=== PATIENT | male | born 1960 | race Caucasian/White ===

== ENCOUNTER 2021-10-14 10:50 | Emergency (ER) | payer MEDICARE ==
[2021-10-14 14:09] LABS: HEMOGLOBIN 11.4 gm/dl (14.0-17.5)
[2021-10-14 14:18] LABS: WHITE BLOOD COUNT 35.7 K/UL (4.5-11.0)
[2021-10-14 14:28] LABS: BUN/CREATININE RATIO 19 (0-10)
== END 2021-10-14 17:17 | disposition home or self-care (01) ==
LOC: ER1 10:50
PROVIDERS: Emergency Medicine
DX: D72.829 Elevated white blood cell count, unspecified (principal); J44.9 Chronic obstructive pulmonary disease, unspecified; I25.2 Old myocardial infarction; F17.210 Nicotine dependence, cigarettes, uncomplicated; Z20.822 Contact with and (suspected) exposure to COVID-19
CPT/HCPCS: 36415; 71045; 71260; 80048; 80053; 80061; 81001; 82043; 82570; 83036; 83605; 83704; 84443; 84550; 85007; 85027; 87040; 96374; 99284; J0696; Q9967; U0002

== ENCOUNTER → 2021-10-14 | Outpatient (CLI) | payer MEDICARE ==
[~2021-10-14] MED LIST: AMARYL 2MG TABLE2 MG PO; ASPIR 8181 MG PO; ASPIR-LOW81 MG PO; ASPIRIN EC81 MG PO; BUMETANIDE2 MG PO; CALCIUM 600 +1 EAC3 PO; CALCIUM 600 +1 EAC7 PO; CARBAMAZEPINE200 MG PO; CELECOXIB200 MG PO; CRESTOR40 MG PO; CYMBALTA 30 MG30 MG PO; EFFER-K 20 MEQ20 MEQ PO; FEOSOL325 MG PO; FLOMAX 0.4 MG0.4 MG PO; FLONASE 0.05% N16 GM; FOSAMAX70 MG PO; HYDROXYZINE HCL25 MG PO; IMDUR ER TAB 3030 MG PO; KEPPRA 500 MG500 MG PO; LOPRESSOR 25 MG25 MG PO; NAPROSYN500 MG PO; NASONEX17 GM; NEURONTIN 400400 MG PO; NITROGLYCERIN0.4 MG SL; OMEPRAZOLE20 MG PO; OXYCODONE HCL5 MG PO; PERCOCET 5-3251 EACH PO; PROAIR HFA8.5 GM INH; QUETIAPINE FUM300 MG PO; QUETIAPINE FUMA25 MG PO; REMERON45 MG PO; RESTORIL30 MG PO; ROBAXIN 750 MG750 MG PO; SEROQUEL TAB 2525 MG PO; SYMBICORT 160-1 INHA INH; TIZANIDINE HCL4 M1 PO; TIZANIDINE HCL4 MG PO; TOPROL XL 25 MG25 MG PO; VISTARIL25 MG PO; [UNRECOGNIZED DRUG - OTHER] PO
[2021-10-14 08:12] LABS: HEMOGLOBIN 11.6 gm/dl (14.0-17.5); RED BLOOD COUNT 3.73 M/UL (4.20-5.50)
[2021-10-14 09:55] LABS: WHITE BLOOD COUNT 36.1 K/UL (4.5-11.0)
[2021-10-15 07:10] LABS: A/G RATIO 1.8 (1.2-2.2); ALKALINE PHOSPHATASE, S 80 IU/L (44-121); ALT (SGPT) 18 IU/L (0-44); AST (SGOT) 17 IU/L (0-40); BILIRUBIN, TOTAL <0.2 mg/dL (0.0-1.2); BUN 13 mg/dL (8-27); BUN/CREATININE RATIO 18 (10-24); CALCIUM, SERUM 9.3 mg/dL (8.6-10.2); CARBON DIOXIDE, TOTAL 21 mmol/L (20-29); CHLORIDE, SERUM 97 mmol/L (96-106); CREATININE, SERUM 0.74 mg/dL (0.76-1.27); EGFR IF AFRICN AM 113 (>59); EGFR IF NONAFRICN AM 98 (>59); ESTIM. AVG GLU (EAG) 128 mg/dL (.); GLOBULIN, TOTAL 2.4 g/dL (1.5-4.5); GLUCOSE, SERUM 112 mg/dL (65-99); HEMOGLOBIN A1C 6.1 % (4.8-5.6); POTASSIUM, SERUM 4.5 mmol/L (3.5-5.2); PROTEIN, TOTAL, SERUM 6.7 g/dL (6.0-8.5); SODIUM, SERUM 133 mmol/L (134-144)
[2021-10-15 10:10] LABS: CREATININE, URINE 91.6 mg/dL (Not Estab.)
[2021-10-16 19:09] LABS: CHOLESTEROL, TOTAL 120 mg/dL (100-199); HDL SIZE 9.7 nm (>=9.2); HDL-C 47 mg/dL (>39); HDL-P (TOTAL) 28.4 umol/L (>=30.5); LARGE HDL-P 6.3 umol/L (>=4.8); LARGE VLDL-P 1.7 nmol/L (<=2.7); LDL SIZE 20.5 nm (>20.5); LDL SIZE 20.5 nm (>=20.8); LDL-C 57 mg/dL (0-99); LDL-P 687 nmol/L (<1000); LP-IR SCORE 32 (<=45); SMALL LDL-P 281 nmol/L (<=527); TRIGLYCERIDES 78 mg/dL (0-149); VLDL SIZE 43.5 nm (<=46.6)
== END ==
LOC: LAB 07:18
PROVIDERS: Emergency Medicine
DX: I10 Essential (primary) hypertension (principal); E11.9 Type 2 diabetes mellitus without complications; E03.9 Hypothyroidism, unspecified; E78.2 Mixed hyperlipidemia; F41.1 Generalized anxiety disorder; J43.8 Other emphysema
CPT/HCPCS: 36415; 80053; 80061; 82043; 82570; 83036; 83704; 84443; 84550; 85007; 85027

== ENCOUNTER 2021-11-19 21:49 | Inpatient (IN) | payer MEDICARE ==
[~2021-11-19] VITALS: Ht 182.9 cm; Wt 72.6 kg
[~2021-11-19 21:49] MED LIST changes: -ASPIR-LOW81 MG PO; -IMDUR ER TAB 3030 MG PO; +ISOSORBIDE MONO30 MG PO
[2021-11-19 22:25] LABS: HEMOGLOBIN 11.9 gm/dl (14.0-17.5); RED BLOOD COUNT 3.69 M/UL (4.20-5.50)
[2021-11-19 22:47] LABS: BUN/CREATININE RATIO 16 (0-10)
[2021-11-19 23:02] LABS: WHITE BLOOD COUNT 127.1 K/UL (4.5-11.0)
[2021-11-20 09:16] LABS: RED BLOOD COUNT 3.76 M/UL (4.20-5.50)
[2021-11-20 09:26] LABS: WHITE BLOOD COUNT 126.3 K/UL (4.5-11.0)
[2021-11-20] MEDS ORDERED: CYMBALTA30 MG PO (09:31)
[2021-11-20] MEDS ORDERED: CRESTOR20 MG PO (09:31)
[2021-11-20] MEDS ORDERED: ALLOPURINOL300 MG PO (09:31)
[2021-11-20] MEDS ORDERED: ZETIA10 MG PO (09:31)
[2021-11-21 06:31] LABS: HEMOGLOBIN 11.8 gm/dl (14.0-17.5); RED BLOOD COUNT 3.68 M/UL (4.20-5.50)
[2021-11-21 06:44] LABS: WHITE BLOOD COUNT 121.7 K/UL (4.5-11.0)
[2021-11-21 06:55] LABS: BUN/CREATININE RATIO 15 (0-10)
[2021-11-21] MEDS ORDERED: LEVOFLOXACIN500 MG PO (18:36)
[2021-11-21] MEDS ORDERED: ACETAMINOPHEN325 MG PO (18:36)
--- NOTE | 2021-11-21 19:35 | NUR ---
PT D/C'D HOME AT 1935. PT STABLE AT THE TIME OF DISCHARGE.
== END 2021-11-21 19:36 | disposition home or self-care (01) | DRG 841 ==
LOC: ER1 21:49 → MED SURG 4 11-20 06:28 → CDU 11-20 06:28 → MED SURG 4 11-20 08:30
PROVIDERS: Internal Medicine; Student in an Organized Health Care Education/Training Program; ADMIT Internal Medicine
DX: C92.10 Chronic myeloid leukemia, BCR/ABL-positive, not having achieved remission (principal); D84.9 Immunodeficiency, unspecified; M00.852 Arthritis due to other bacteria, left hip; K40.30 Unilateral inguinal hernia, with obstruction, without gangrene, not specified as recurrent; Z20.822 Contact with and (suspected) exposure to COVID-19; F17.210 Nicotine dependence, cigarettes, uncomplicated; F41.9 Anxiety disorder, unspecified; F32.A Depression, unspecified; G89.29 Other chronic pain; M54.16 Radiculopathy, lumbar region; M25.452 Effusion, left hip; M54.50 Low back pain, unspecified; K59.09 Other constipation; I10 Essential (primary) hypertension; E78.5 Hyperlipidemia, unspecified; G40.909 Epilepsy, unspecified, not intractable, without status epilepticus; J44.9 Chronic obstructive pulmonary disease, unspecified; Z90.49 Acquired absence of other specified parts of digestive tract; Z98.890 Other specified postprocedural states; Z80.9 Family history of malignant neoplasm, unspecified; Z82.49 Family history of ischemic heart disease and other diseases of the circulatory system
CPT/HCPCS: 36415; 71045; 73502; 73701; 80053; 81001; 82962; 83605; 83690; 85007; 85027; 85610; 85652; 85730; 86140; 87040; 87086; 93005; 96365; 96375; 96376; 99285; J2270; J2405; J2543; J3370; J7030; J7070; Q9967; U0002

== ENCOUNTER → 2021-11-24 | Outpatient (CLI) | payer MEDICARE ==
[~2021-11-24] MED LIST changes: +ACETAMINOPHEN325 MG PO; +ALLOPURINOL300 MG PO; +CRESTOR20 MG PO; +CYMBALTA30 MG PO; +LEVOFLOXACIN500 MG PO; +ZETIA10 MG PO
== END ==
LOC: KOH-I 14:02
DX: D72.829 Elevated white blood cell count, unspecified (principal)
CPT/HCPCS: 93971

== ENCOUNTER 2022-02-20 16:20 | Emergency (ER) | payer MEDICARE ==
[2022-02-20 17:10] LABS: HEMOGLOBIN 12.4 gm/dl (14.0-17.5); RED BLOOD COUNT 3.91 M/UL (4.20-5.50)
[2022-02-20 17:21] LABS: WHITE BLOOD COUNT 113.5 K/UL (4.5-11.0)
[2022-02-20 17:34] LABS: BUN/CREATININE RATIO 13 (0-10)
[2022-02-20] MEDS ORDERED: PROTONIX 40 MG40 M1 PO (19:36)
== END 2022-02-20 19:40 | disposition home or self-care (01) ==
LOC: ER1 16:20
PROVIDERS: Preventive Medicine Occupational Medicine
DX: K29.00 Acute gastritis without bleeding (principal)
CPT/HCPCS: 80053; 81001; 82272; 83690; 85007; 85027; 85610; 85652; 85730; 86140; 87086; 99285; Q9967

== ENCOUNTER → 2022-03-01 | Day surgery (SDC) | payer MEDICARE ==
[~2022-03-01] MED LIST changes: +PROTONIX 40 MG40 M1 PO
== END | disposition home or self-care (01) ==
LOC: OR 07:17
DX: K64.2 Third degree hemorrhoids (principal); K62.5 Hemorrhage of anus and rectum; K27.3 Acute peptic ulcer, site unspecified, without hemorrhage or perforation; K31.A15 Gastric intestinal metaplasia without dysplasia, involving multiple sites; K29.50 Unspecified chronic gastritis without bleeding; K31.9 Disease of stomach and duodenum, unspecified; K44.9 Diaphragmatic hernia without obstruction or gangrene; K22.2 Esophageal obstruction; K21.00 Gastro-esophageal reflux disease with esophagitis, without bleeding; K56.41 Fecal impaction; K57.30 Diverticulosis of large intestine without perforation or abscess without bleeding; I10 Essential (primary) hypertension; J44.9 Chronic obstructive pulmonary disease, unspecified; E11.9 Type 2 diabetes mellitus without complications; E78.00 Pure hypercholesterolemia, unspecified; F17.200 Nicotine dependence, unspecified, uncomplicated; Z79.82 Long term (current) use of aspirin; Z79.899 Other long term (current) drug therapy
CPT/HCPCS: 82962; J2704